=== PATIENT | female | born 1965 | race Caucasian/White ===

== ENCOUNTER 2018-02-21 09:44 | Emergency (ER) | payer OTHER ==
[~2018-02-21] VITALS: Ht 167.6 cm; Wt 109.8 kg
[~2018-02-21 09:44] MED LIST: ADDERALL 20 MG20 MG PO; IBUPROFEN800 MG PO; L-METHYLFOLATE1 EAC6 PO; OXYCODONE-ACET1 EAC1 PO; VITAMIN B-125000 MCG SL
--- NOTE | 2018-02-21 20:47 | EKG ---
[facility] [address] [facility] [place], [place] [address] Signed Normal sinus rhythm Normal ECG No previous ECGs available Confirmed by CHARITO LARRY MD ([id number] on 02/21/2018 8:47:36 PM Electronically Signed By: CHARITO LARRY MD 02/21/18 2047 PATIENT NAME: MANA ESPINOZA Electrocardiogram DATE OF : 69 PHYSICIAN: CHARITO LARRY MD REPORT #: [id number] REPORT IS CONFIDENTIAL AND NOT TO BE RELEASED WITHOUT AUTHORIZATION
== END 2018-02-21 11:02 | disposition home or self-care (01) ==
LOC: ED 09:44
DX: R07.2 Precordial pain (principal)
CPT/HCPCS: 71045; 80053; 84484; 85025; 93005; 93010; 96374; 99285; J2060